=== PATIENT | female | born 1965 | race Native Hawaiian/Other Pacific Islander ===

== ENCOUNTER 2018-05-04 19:39 | Emergency (ER) | payer BC ==
[~2018-05-04] VITALS: Ht 172.7 cm; Wt 77.1 kg
[2018-05-04] MEDS ORDERED: BENAZEPRIL HCL5 MG PO (19:57)
[2018-05-04] MEDS ORDERED: ASA LOW DOSE81 MG PO (19:58)
[2018-05-04] MEDS ORDERED: FLUO10CA2 PO (19:58)
[2018-05-04] MEDS ORDERED: OMEPRAZOLE10 MG PO (19:59)
[2018-05-04 20:42] VITALS: BP 150/85; TEMP 98
== END 2018-05-04 20:42 | disposition home or self-care (01) ==
LOC: ED 19:39
PROC: 0HQNXZZ Repair Left Foot Skin, External Approach (ICD-10-PCS; principal; 2018-05-04)
DX: S91.312A Laceration without foreign body, left foot, initial encounter (principal); W22.8XXA Striking against or struck by other objects, initial encounter; Y93.89 Activity, other specified; Y92.89 Other specified places as the place of occurrence of the external cause; Y99.8 Other external cause status
CPT/HCPCS: 99283